=== PATIENT | female | born 1945 | race Caucasian/White ===

== ENCOUNTER → 2017-08-20 | Outpatient (CLI) | payer OTHER | END | disposition home or self-care (01) | LOC: KCIC MRI 11:09 | DX: M48.061 Spinal stenosis, lumbar region without neurogenic claudication (principal); M48.56XA Collapsed vertebra, not elsewhere classified, lumbar region, initial encounter for fracture; M51.36 Other intervertebral disc degeneration, lumbar region; M43.16 Spondylolisthesis, lumbar region; W19.XXXA Unspecified fall, initial encounter; Y93.89 Activity, other specified; Y92.89 Other specified places as the place of occurrence of the external cause; Y99.8 Other external cause status | CPT/HCPCS: 72148 ==

== ENCOUNTER → 2018-04-13 | Outpatient (CLI) | payer OTHER ==
--- NOTE | 2018-04-13 10:28 | RAD ---
MRI Lumbar Spine without contrast History: Low back pain, fall 2 weeks ago, history of compression fracture Technique: Multiplanar, multi sequential noncontrast MR imaging was performed of the lumbar spine. Contrast: None Comparison: August 20, 2017 Findings: There is acute L3 compression fracture with edema signified by STIR hyperintense and T1 hypointense signal, very minimal osseous retropulsion of the inferior margin. Fracture plane primarily involves in the inferior aspect of the vertebral body. There is old superior L2 compression deformity and large Schmorl's node as seen previously, degree of associated STIR hyperintense signal very similar. There is also mild edema of the inferior L1 endplate also unchanged without significant height loss. There is minimal L5-S1 endplate edema more likely to be reactive/degenerative in etiology. There is again more advanced degenerative disc disease at L4-5, minimally at other levels such as L1-2 and L2-3. There is also degenerative disc disease of the visualized T11-12 level. Conus terminates at L1. L1-L2: There is again minimal disc osteophyte complex. There is mild buckling of the ligamentum flavum. There is minimal neural foramina compromise bilaterally as seen previously. Spinal canal is not significantly narrowed. L2-L3: There is again mild buckling of the ligamentum flavum and facet degenerative change. There is negligible bulge. Spinal canal is not significantly narrowed. Neural foramina are overall adequate. L3-L4: There is mild osseous retropulsion of the inferior aspect of L3 slightly indenting the ventral thecal sac. There is mild buckling of the liver flavum and facet degenerative change. There is again mild narrowing of the left neural foramen, also mild narrowing on the right. There is mild indentation upon the ventral thecal sac, spinal canal not significantly narrowed. L4-L5: There is again mild buckling of the ligamentum flavum. The spinal canal is overall adequate. There is again mild narrowing of the left neural foramen, right neural foramen not significantly narrowed. L5-S1: Spinal canal and neural foramina are adequate. There is mild facet hypertrophic change. Impression: 1. There is a recent L3 compression fracture, minimal osseous retropulsion inferiorly without significant spinal stenosis. There is similar degree of superior L2 height loss and large Schmorl's node. 2. There is mild neural foramina compromise as stated. There is no new significant lumbar spinal stenosis. Electronically signed by: Karel Srivastava MD (04/13/2018 10:25 AM) [id number]
== END | disposition home or self-care (01) ==
LOC: MRI 09:23
PROVIDERS: ATTEND Surgery
DX: M48.56XA Collapsed vertebra, not elsewhere classified, lumbar region, initial encounter for fracture (principal); M51.46 Schmorl's nodes, lumbar region; M51.36 Other intervertebral disc degeneration, lumbar region; M48.061 Spinal stenosis, lumbar region without neurogenic claudication
CPT/HCPCS: 72148

== ENCOUNTER 2018-04-17 08:15 | Outpatient (CLI) | payer OTHER ==
[2018-04-17] VITALS (10 sets, daily range): BP systolic 111–149; BP diastolic 60–77
[~2018-04-17] VITALS: Ht 154.9 cm; Wt 91.2 kg
[2018-04-17 09:00] LABS: BASO % 1 % (0-3); EOS # 0.1 x10^3/uL (0.0-0.7); EOS % 3 % (0-3); HEMATOCRIT 42.6 % (36.0-47.0); HEMOGLOBIN 14.4 g/dL (12.0-15.5); LYMPH # 1.4 x10^3/uL (1.0-4.8); LYMPH % 29 % (24-48); MEAN CORPUSCULAR HEMOGLOBIN 32 pg (25-35); MEAN CORPUSCULAR HGB CONC 34 g/dL (31-37); MEAN CORPUSCULAR VOLUME 95 fL (79-100); MONO # 0.5 x10^3/uL (0.0-1.1); MONO % 9 % (0-9); NEUT % 59 % (31-73); PLATELET COUNT 234 x10^3/uL (140-400); RED CELL DISTRIBUTION WIDTH 13.9 % (11.5-14.5)
[2018-04-17] MEDS ORDERED: FURO40TA4 PO (09:11)
[2018-04-17] MEDS ORDERED: DILT120C71 PO (09:11)
[2018-04-17] MEDS ORDERED: ALLO300T PO (09:11)
[2018-04-17 09:12] LABS: PROTHROMBIN TIME PATIENT 19.1 SEC (11.7-14.0)
[2018-04-17] MEDS ORDERED: HYDR-2762 PO (09:18)
[2018-04-17] MEDS ORDERED: WARF-31 PO (09:18)
[2018-04-17] MEDS ORDERED: ASPI-630 PO (09:18)
[2018-04-17] MEDS ORDERED: PANT20TA2 PO (09:18)
[2018-04-17] MEDS ORDERED: ATEN25TA PO (09:18)
[2018-04-17] MEDS ORDERED: GADOBUTROL 7.5 MMOL/7.5 ML VIAL ONE (09:39)
[2018-04-17] MEDS ORDERED: LIDOCAINE WITH 8.4% SOD BICARB 3 ML DISP.SYRIN. ONE (09:39)
[2018-04-17] MEDS ORDERED: fentaNYL PF VIAL 250 MCG/5 ML VIAL ONE (09:40)
[2018-04-17] MEDS ORDERED: MIDAZOLAM HCL/PF 5 MG/5 ML VIAL. ONE (09:40)
[2018-04-17] MEDS ORDERED: LIDOCAINE WITH 8.4% SOD BICARB 3 ML DISP.SYRIN. IJ ONE (10:30)
[2018-04-17] MEDS ORDERED: MIDAZOLAM HCL/PF 5 MG/5 ML VIAL. IV ONE (10:30)
[2018-04-17] MEDS ORDERED: fentaNYL PF VIAL 250 MCG/5 ML VIAL IV ONE (10:30)
[2018-04-17] MEDS ORDERED: GADOBUTROL 7.5 MMOL/7.5 ML VIAL IV ONE (10:30)
--- NOTE | 2018-04-17 11:46 | RAD ---
L3 kyphoplasty 04/17/2018 Indication: 72-year-old female with pathologic L3 compression fracture. Patient has severe pain, refractory to conservative treatment measures. Pain limits activities of daily living. Discussion: The risks and benefits of the procedure were discussed the patient. Informed consent was obtained. The patient was brought to the fluoroscopy suite and placed in the prone position. Timeout procedure was performed. The posterior abdomen was prepped and draped using sterile barrier technique. All elements of maximal sterile barrier technique including the use of a cap, mask, sterile gown, sterile gloves, large sterile sheet, appropriate hand hygiene, and 2% chlorhexidine for cutaneous antisepsis (or acceptable alternative antiseptic per current guidelines) were followed for this procedure. The L3 vertebrae was identified fluoroscopically. To the skin and subcutaneous tissues overlying the left pedicle. A left transpedicular approach was used. A trocar needles advanced to the posterior third of the L3 vertebral body. A curved balloon was advanced into the central vertebral body and deployed. A curved cement delivery needle was advanced into the contralateral vertebral body. Cement was instilled through the aforementioned needle filling the cavity created by the balloon as well as surrounding trabecula. After adequate filling of been achieved the needle was removed. Manual pressure was held to achieve hemostasis. A sterile dressing was applied. No immediate complications were identified. The procedure was performed under conscious sedation including continuous cardiopulmonary monitoring via dedicated sedation nurse. [id number] sedation time: 1 hour Fluoroscopy time: 7.7 min Dose area product:: 97.1 Gycm2 Impression: L3 kyphoplasty
== END 2018-04-17 13:30 | disposition home or self-care (01) ==
LOC: INTRAD 08:15
PROVIDERS: ATTEND Surgery
DX: S32.038A Other fracture of third lumbar vertebra, initial encounter for closed fracture (principal); Z79.01 Long term (current) use of anticoagulants; Z91.041 Radiographic dye allergy status; Z79.899 Other long term (current) drug therapy; W19.XXXA Unspecified fall, initial encounter; Y93.89 Activity, other specified
CPT/HCPCS: 22514; 36415; 85025; 85610; 99152; 99153; A9585; C1713; C1758; C1892; J0690; J2250; J3010

== ENCOUNTER → 2019-02-26 | Outpatient (CLI) | payer OTHER ==
[2018-04-17 12:45] VITALS: BP 136/69
[~2019-02-26] MED LIST: ALLO300T PO; ASPI-630 PO; ATEN25TA PO; DILT120C71 PO; FURO40TA4 PO; HYDR-2765 PO; PANT20TA2 PO; WARF-31 PO
--- NOTE | 2019-02-26 16:47 | RAD ---
Examination: VENOUS LOWER EXTREMITY RIGHT History: Right calf swelling FINDINGS: Right lower extremity duplex venous ultrasound exam was performed. Grayscale, color Doppler, and spectral Doppler imaging was performed. Compression and augmentation was performed. The right common femoral vein, superficial femoral vein, popliteal vein, and greater saphenous vein are normal with no evidence of deep venous thrombus. Posterior tibial and peroneal veins are unremarkable. Normal compressibility and augmentation is evident. IMPRESSION: Normal right lower extremity duplex ultrasound exam. No evidence of deep venous thrombus involving the right lower extremity. Electronically signed by: Kaiden Moore MD (02/26/2019 4:44 PM) [facility]
== END | disposition home or self-care (01) ==
LOC: US 15:50
PROVIDERS: ATTEND Physician Assistant Surgical
DX: M79.89 Other specified soft tissue disorders (principal)
CPT/HCPCS: 93971